=== PATIENT | male | born 2000 | race African-American/Black ===

== ENCOUNTER 2020-03-30 12:04 | Emergency (ER) | payer MEDICAID ==
[~2020-03-30] VITALS: Ht 177.8 cm; Wt 73.0 kg
[2020-03-30] MEDS ORDERED: IBUPROFEN 600MG TABLET PO STA (12:35)
[2020-03-30 13:49] VITALS: BP 127/88
== END 2020-03-30 13:50 | disposition home or self-care (01) ==
LOC: ER 12:04
DX: M25.562 Pain in left knee (principal)
CPT/HCPCS: 73562; 99283

== ENCOUNTER 2020-08-11 18:04 | Emergency (ER) | payer MEDICAID, OTHER ==
[~2020-08-11] VITALS: Ht 177.8 cm; Wt 72.0 kg
[2020-08-11 18:05] VITALS: BP 122/90
[2020-08-11] MEDS ORDERED: HALOPERIDOL LACTATE 5MG/ML VIAL IM ONE (19:00)
== END 2020-08-11 19:06 | disposition left against medical advice (07) ==
LOC: ER 18:04
DX: R10.9 Unspecified abdominal pain (principal); R11.10 Vomiting, unspecified; J45.909 Unspecified asthma, uncomplicated
CPT/HCPCS: 93005; 99283